=== PATIENT | female | born 1940 | race Caucasian/White ===

== ENCOUNTER → 2016-10-09 | Outpatient (CLI) | payer MEDICARE, BC ==
[~2016-10-09] MED LIST: CALCIUM + D 5001 TAB PO; GLUCOSAMINE & C1 CA1 PO; LEVOTHYROXIN0.075 MG PO; OCUVITE1 TA1 PO; ULTRAM50 MG PO; VITAMIN C500 MG PO; ZYRTEC 10MG10 MG PO
== END ==
LOC: LAB 07:38
DX: E03.4 Atrophy of thyroid (acquired) (principal); E78.2 Mixed hyperlipidemia

== ENCOUNTER → 2016-12-28 | Outpatient (CLI) | payer MEDICARE, BC ==
[2014-01-10 12:31] VITALS: BP 156/79
== END ==
LOC: LAB 07:43
DX: E03.9 Hypothyroidism, unspecified (principal)

== ENCOUNTER → 2017-01-03 | Outpatient (CLI) | payer MEDICARE, BC ==
[2014-01-10 12:31] VITALS: BP 156/79
== END ==
LOC: MAMMO 14:20
DX: Z12.31 Encounter for screening mammogram for malignant neoplasm of breast (principal)
CPT/HCPCS: G0202

== ENCOUNTER → 2017-03-09 | Outpatient (CLI) | payer MEDICARE, BC ==
[2014-01-10 12:31] VITALS: BP 156/79
== END ==
LOC: RAD 08:55
DX: Z13.820 Encounter for screening for osteoporosis (principal); M81.0 Age-related osteoporosis without current pathological fracture

== ENCOUNTER → 2017-04-20 | Outpatient (CLI) | payer MEDICARE, BC ==
[2014-01-10 12:31] VITALS: BP 156/79
== END ==
LOC: LAB 08:29
DX: E03.4 Atrophy of thyroid (acquired) (principal); F51.09 Other insomnia not due to a substance or known physiological condition

== ENCOUNTER 2017-09-05 08:16 | Emergency (ER) | payer MEDICARE, BC ==
[~2017-09-05] VITALS: Ht 160 cm; Wt 63.6 kg
[2017-09-05] MEDS ORDERED: ALENDRONATE SOD70 MG PO (08:37)
[2017-09-05] MEDS ORDERED: GOOD SENSE ASPI81 M1 PO (08:38)
[2017-09-05 09:11] LABS: HEMOGLOBIN 12.6 g/dL (12.5-16.0); MEAN CELL VOLUME 86 fl (78-100); MEAN CORPUSCULAR HEMOGLOBIN 27 pg (27-31); MEAN CORPUSCULAR HGB CONC 32 g/dL (33-37); MEAN PLATELET VOLUME 10.8 fl (7.4-10.4); PLATELET COUNT 244 K/mm3 (130-400); RED BLOOD COUNT 4.66 M/mm3 (4.10-5.30); RED CELL DISTRIBUTION WIDTH 14.5 % (11.5-14.5)
[2017-09-05 09:20] LABS: ALBUMIN 3.7 g/dL (3.5-5.0); POTASSIUM 3.9 mmol/L (3.6-5.0); TOTAL BILIRUBIN 0.6 mg/dL (0.2-1.3); TOTAL PROTEIN 6.9 g/dL (6.3-8.2)
[2017-09-05 09:22] LABS: LYMPHOCYTE 22 % (20-51); MONOCYTE 9 % (3-10); NEUTROPHILS 69 % (42-75)
[2017-09-05 09:27] LABS: D-DIMER 0.47 mg/L FEU (0.15-0.50)
[2017-09-05] MEDS ORDERED: MEDI-FIRST ASP325 MG PO (09:56)
[2017-09-05 10:47] LABS: URINE APPEARANCE CLEAR; URINE BILIRUBIN NEGATIVE (NEGATIVE); URINE BLOOD NEGATIVE (NEGATIVE); URINE COLOR YELLOW; URINE GLUCOSE NEGATIVE (NEGATIVE); URINE KETONE SMALL (NEGATIVE); URINE LEUKOCYTE ESTERASE NEGATIVE (NEGATIVE); URINE MUCUS PRESENT (NOT PRESENT); URINE NITRATE NEGATIVE (NEGATIVE); URINE PROTEIN(semi-quant) NEGATIVE (NEGATIVE); URINE UROBILINOGEN NORMAL (NORMAL)
[2017-09-05] MEDS ORDERED: LISINOPRIL10 MG PO (11:47)
[2017-09-05] MEDS ORDERED: DIFLUCAN150 M1 PO (11:47)
[2017-09-05 12:06] VITALS: BP 163/75
== END 2017-09-05 11:58 | disposition home or self-care (01) ==
LOC: ED 08:16
PROVIDERS: Physician Assistant
DX: I10 Essential (primary) hypertension (principal); R55 Syncope and collapse; S96.911A Strain of unspecified muscle and tendon at ankle and foot level, right foot, initial encounter; W19.XXXA Unspecified fall, initial encounter; Z88.2 Allergy status to sulfonamides; E03.9 Hypothyroidism, unspecified; Z79.82 Long term (current) use of aspirin; M81.0 Age-related osteoporosis without current pathological fracture; B37.49 Other urogenital candidiasis

== ENCOUNTER → 2017-10-24 | Outpatient (CLI) | payer MEDICARE, BC ==
[2017-09-13 11:29] VITALS: BP 160/80
[~2017-10-24] MED LIST changes: +ALENDRONATE SOD70 MG PO; +DIFLUCAN150 M1 PO; +GOOD SENSE ASPI81 M1 PO; +LISINOPRIL10 MG PO; +MEDI-FIRST ASP325 MG PO
== END ==
LOC: LAB 07:44
PROVIDERS: Family Medicine
DX: E03.4 Atrophy of thyroid (acquired) (principal); E78.2 Mixed hyperlipidemia; F51.09 Other insomnia not due to a substance or known physiological condition

== ENCOUNTER → 2017-12-28 | Outpatient (CLI) | payer MEDICARE, BC ==
[2017-09-13 11:29] VITALS: BP 160/80
== END ==
LOC: CARDREHAB 09:34 → CARDLAB 16:06
DX: R93.1 Abnormal findings on diagnostic imaging of heart and coronary circulation (principal); R07.89 Other chest pain; I10 Essential (primary) hypertension
CPT/HCPCS: A9500

== ENCOUNTER → 2018-01-16 | Outpatient (CLI) | payer MEDICARE, BC ==
[2017-09-13 11:29] VITALS: BP 160/80
== END ==
LOC: MAMMO 10:55
DX: Z12.31 Encounter for screening mammogram for malignant neoplasm of breast (principal)

== ENCOUNTER → 2018-11-27 | Outpatient (CLI) | payer MEDICARE, BC ==
[2017-09-13 11:29] VITALS: BP 160/80
[2018-11-27 08:37] LABS: ALBUMIN 3.9 g/dL (3.5-5.0); CALCIUM 10.1 mg/dL (8.4-10.2); POTASSIUM 3.9 mmol/L (3.6-5.0); TOTAL BILIRUBIN 0.5 mg/dL (0.2-1.3)
== END ==
LOC: LAB 07:32
PROVIDERS: Family Medicine
DX: E03.9 Hypothyroidism, unspecified (principal); I10 Essential (primary) hypertension

== ENCOUNTER → 2019-01-23 | Outpatient (CLI) | payer MEDICARE, BC ==
[2017-09-13 11:29] VITALS: BP 160/80
== END ==
LOC: MAMMO 08:09
DX: Z12.31 Encounter for screening mammogram for malignant neoplasm of breast (principal)

== ENCOUNTER 2019-07-13 10:44 | Emergency (ER) | payer MEDICARE, BC ==
[~2019-07-13] VITALS: Ht 160 cm; Wt 70.5 kg
[2019-07-13] MEDS ORDERED: LEVOTHYROXIN0.075 MG PO (10:58)
[2019-07-13] MEDS ORDERED: LISINOPRIL2.5 MG PO (10:59)
[2019-07-13 11:21] LABS: ALBUMIN 4.2 g/dL (3.4-4.8)
[2019-07-13 11:22] LABS: SODIUM 140 mmol/L (136-145)
[2019-07-13 11:23] LABS: CALCIUM 10.6 mg/dL (8.3-10.5)
[2019-07-13 11:24] LABS: GLUCOSE 94 mg/dL (65-105); TOTAL PROTEIN 7.2 g/dL (6.2-8.1)
[2019-07-13 11:25] LABS: CARBON DIOXIDE 24 mmol/L (23-31)
[2019-07-13 11:26] LABS: TOTAL BILIRUBIN 0.4 mg/dL (0.2-1.2)
[2019-07-13 11:27] LABS: EOS # 0.2 (0.04-0.40); EOS % 2.2 % (1.0-5.0); HEMOGLOBIN 12.9 g/dL (12.5-16.0); LYMPH# 3.2 (1.50-4.00); MEAN CELL VOLUME 83 fl (78-100); MEAN CORPUSCULAR HEMOGLOBIN 27 pg (27-31); MEAN CORPUSCULAR HGB CONC 32 g/dL (33-37); MEAN PLATELET VOLUME 11.4 fl (7.4-10.4); NEU # 4.5 (1.40-6.50); PARTIAL THROMBOPLASTIN TIME 26.1 SECONDS (21.0-32.0); PLATELET COUNT 239 K/mm3 (130-400); PROTHROMBIN TIME 10.1 SECONDS (9.0-12.0); RED BLOOD COUNT 4.84 M/mm3 (4.10-5.30); RED CELL DISTRIBUTION WIDTH 15.5 % (11.5-14.5); WHITE BLOOD COUNT 8.9 K/mm3 (4.8-10.8)
[2019-07-13 11:29] LABS: AST-SGOT 24 U/L (5-34)
[2019-07-13 11:31] LABS: ALT/SGPT 21 U/L (0-55)
[2019-07-13 11:39] LABS: TROPONIN-I < 0.03 ng/mL (<0.030)
[2019-07-13 12:23] VITALS: BP 185/99
== END 2019-07-13 12:43 | disposition short-term general hospital (02) ==
LOC: ED 10:44
PROVIDERS: Family Medicine
DX: I62.9 Nontraumatic intracranial hemorrhage, unspecified (principal); G81.94 Hemiplegia, unspecified affecting left nondominant side; E03.9 Hypothyroidism, unspecified; Z79.82 Long term (current) use of aspirin
CPT/HCPCS: J2997

== ENCOUNTER 2019-08-11 08:53 | Emergency (ER) | payer MEDICARE, BC ==
[~2019-08-11] VITALS: Ht 162.6 cm; Wt 65.5 kg
[~2019-08-11 08:53] MED LIST changes: +LISINOPRIL2.5 MG PO
[2019-08-11] MEDS ORDERED: GOOD SENSE ASPI81 M1 PO (09:08)
[2019-08-11] MEDS ORDERED: CLOPIDOGREL75 M2 PO (09:08)
[2019-08-11] MEDS ORDERED: ATROVENT NASAL15 ML NS (09:09)
[2019-08-11] MEDS ORDERED: FAMOTIDINE20 MG PO (09:10)
[2019-08-11] MEDS ORDERED: ATORVASTATIN CA20 MG PO (09:10)
[2019-08-11] MEDS ORDERED: ALENDRONATE SOD70 MG PO (09:10)
[2019-08-11 09:44] LABS: EOS # 0.1 (0.04-0.40); EOS % 1.2 % (1.0-5.0); HEMATOCRIT 38.2 % (37.0-47.0); HEMOGLOBIN 12.1 g/dL (12.5-16.0); LYMPH# 1.6 (1.50-4.00); MEAN CELL VOLUME 84 fl (78-100); MEAN CORPUSCULAR HEMOGLOBIN 27 pg (27-31); MEAN CORPUSCULAR HGB CONC 32 g/dL (33-37); MEAN PLATELET VOLUME 10.7 fl (7.4-10.4); MONO # 0.9 (0.20-0.80); PLATELET COUNT 252 K/mm3 (130-400); RED BLOOD COUNT 4.53 M/mm3 (4.10-5.30); RED CELL DISTRIBUTION WIDTH 15.9 % (11.5-14.5); WHITE BLOOD COUNT 7.6 K/mm3 (4.8-10.8)
[2019-08-11 09:56] LABS: ALBUMIN 3.8 g/dL (3.4-4.8)
[2019-08-11 09:57] LABS: POTASSIUM 4.6 mmol/L (3.5-5.1)
[2019-08-11 09:59] LABS: TOTAL PROTEIN 6.6 g/dL (6.2-8.1)
[2019-08-11 10:01] LABS: TOTAL BILIRUBIN 0.4 mg/dL (0.2-1.2)
[2019-08-11 10:28] LABS: URINE APPEARANCE CLEAR; URINE COLOR YELLOW
[2019-08-11 10:29] LABS: URINE BILIRUBIN NEGATIVE (NEGATIVE); URINE BLOOD NEGATIVE (NEGATIVE); URINE GLUCOSE NEGATIVE (NEGATIVE); URINE KETONE NEGATIVE (NEGATIVE); URINE LEUKOCYTE ESTERASE TRACE (NEGATIVE); URINE NITRATE NEGATIVE (NEGATIVE); URINE PROTEIN(semi-quant) TRACE mg/dL (NEGATIVE); URINE UROBILINOGEN NORMAL (NORMAL)
[2019-08-11 10:45] VITALS: BP 135/74
== END 2019-08-11 10:50 | disposition home or self-care (01) ==
LOC: ED 08:53
PROVIDERS: Physician Assistant
DX: F41.9 Anxiety disorder, unspecified (principal); R53.81 Other malaise; I10 Essential (primary) hypertension; Z79.02 Long term (current) use of antithrombotics/antiplatelets; Z79.82 Long term (current) use of aspirin; Z86.73 Personal history of transient ischemic attack (TIA), and cerebral infarction without residual deficits; Z90.49 Acquired absence of other specified parts of digestive tract; Z90.710 Acquired absence of both cervix and uterus; Z88.2 Allergy status to sulfonamides; Z88.6 Allergy status to analgesic agent

== ENCOUNTER 2019-10-23 08:26 | Emergency (ER) | payer MEDICARE, BC ==
[~2019-10-23] VITALS: Wt 70.2 kg
[~2019-10-23 08:26] MED LIST changes: +ATORVASTATIN CA20 MG PO; +ATROVENT NASAL15 ML NS; +CLOPIDOGREL75 M2 PO; +FAMOTIDINE20 MG PO
[2019-10-23 08:46] LABS: HEMATOCRIT 40.1 % (37.0-47.0); HEMOGLOBIN 12.6 g/dL (12.5-16.0); MEAN CELL VOLUME 86 fl (78-100); MEAN CORPUSCULAR HEMOGLOBIN 27 pg (27-31); MEAN CORPUSCULAR HGB CONC 31 g/dL (33-37); MEAN PLATELET VOLUME 10.6 fl (7.4-10.4); PLATELET COUNT 263 K/mm3 (130-400); RED BLOOD COUNT 4.65 M/mm3 (4.10-5.30); WHITE BLOOD COUNT 6.1 K/mm3 (4.8-10.8)
[2019-10-23 08:59] LABS: SODIUM 141 mmol/L (136-145)
[2019-10-23 09:00] LABS: CALCIUM 9.9 mg/dL (8.3-10.5)
[2019-10-23 09:01] LABS: GLUCOSE 88 mg/dL (65-105); TOTAL PROTEIN 6.6 g/dL (6.2-8.1)
[2019-10-23 09:02] LABS: CARBON DIOXIDE 26 mmol/L (23-31); LYMPHOCYTE 31 % (20-51); MONOCYTE 8 % (3-10); NEUTROPHILS 56 % (42-75)
[2019-10-23 09:03] LABS: OVALOCYTES 1+; PARTIAL THROMBOPLASTIN TIME 26.5 SECONDS (21.0-32.0); TOTAL BILIRUBIN 0.5 mg/dL (0.2-1.2)
[2019-10-23 09:06] LABS: AST-SGOT 27 U/L (5-34)
[2019-10-23 09:07] LABS: ALT/SGPT 27 U/L (0-55)
[2019-10-23 09:17] LABS: TROPONIN-I < 0.03 ng/mL (<0.030)
[2019-10-23 10:45] LABS: D-DIMER 0.31 mg/L FEU (0.15-0.50)
[2019-10-23 11:34] LABS: URINE APPEARANCE CLEAR; URINE BILIRUBIN NEGATIVE (NEGATIVE); URINE BLOOD NEGATIVE (NEGATIVE); URINE COLOR YELLOW; URINE GLUCOSE NEGATIVE (NEGATIVE); URINE KETONE SMALL (NEGATIVE); URINE LEUKOCYTE ESTERASE 2+ (NEGATIVE); URINE MUCUS PRESENT (NOT PRESENT); URINE NITRATE NEGATIVE (NEGATIVE); URINE PROTEIN(semi-quant) NEGATIVE (NEGATIVE); URINE UROBILINOGEN NORMAL (NORMAL)
[2019-10-23] MEDS ORDERED: MELATIN 3 MG-11 TAB PO (11:42)
[2019-10-23] MEDS ORDERED: CIPRO 500MG TA500 MG PO ×2 (13:28)
[2019-10-23] MEDS ORDERED: CIPRO500 M1 PO (13:45)
[2019-10-23 14:48] VITALS: BP 142/64
== END 2019-10-23 13:49 | disposition home or self-care (01) ==
LOC: ED 08:26
PROVIDERS: Nurse Practitioner Family
DX: F41.9 Anxiety disorder, unspecified (principal); N30.00 Acute cystitis without hematuria; I10 Essential (primary) hypertension; E03.9 Hypothyroidism, unspecified; Z79.02 Long term (current) use of antithrombotics/antiplatelets; Z79.82 Long term (current) use of aspirin; Z85.820 Personal history of malignant melanoma of skin; Z86.73 Personal history of transient ischemic attack (TIA), and cerebral infarction without residual deficits
CPT/HCPCS: J7030

== ENCOUNTER 2019-10-30 13:30 | Outpatient (RCR) | payer MEDICARE, BC ==
[~2019-10-30 13:30] MED LIST changes: +CIPRO 500MG TA500 MG PO; +CIPRO500 M1 PO; +MELATIN 3 MG-11 TAB PO
== END 2019-10-30 14:00 | disposition still patient (30) ==
LOC: PT 13:30
DX: M25.551 Pain in right hip (principal); I63.9 Cerebral infarction, unspecified

== ENCOUNTER → 2019-12-03 | Outpatient (CLI) | payer MEDICARE, BC ==
[2019-12-03 16:02] LABS: URINE APPEARANCE CLEAR; URINE BILIRUBIN NEGATIVE (NEGATIVE); URINE BLOOD NEGATIVE (NEGATIVE); URINE COLOR YELLOW; URINE GLUCOSE NEGATIVE (NEGATIVE); URINE KETONE NEGATIVE (NEGATIVE); URINE LEUKOCYTE ESTERASE NEGATIVE (NEGATIVE); URINE MUCUS PRESENT (NOT PRESENT); URINE NITRATE NEGATIVE (NEGATIVE); URINE PROTEIN(semi-quant) TRACE mg/dL (NEGATIVE); URINE UROBILINOGEN NORMAL (NORMAL)
== END ==
LOC: LAB 15:51
PROVIDERS: Family Medicine
DX: R32 Unspecified urinary incontinence (principal); R35.1 Nocturia

== ENCOUNTER → 2020-02-16 | Outpatient (CLI) | payer MEDICARE, BC ==
[2020-02-16 10:46] LABS: ALBUMIN 4.3 g/dL (3.4-4.8); POTASSIUM 4.1 mmol/L (3.5-5.1)
[2020-02-16 10:47] LABS: CALCIUM 9.8 mg/dL (8.3-10.5)
[2020-02-16 10:49] LABS: TOTAL PROTEIN 7.1 g/dL (6.2-8.1)
[2020-02-16 10:51] LABS: TOTAL BILIRUBIN 0.4 mg/dL (0.2-1.2)
[2020-02-16 11:05] LABS: URINE APPEARANCE HAZY; URINE BILIRUBIN NEGATIVE (NEGATIVE); URINE BLOOD NEGATIVE (NEGATIVE); URINE COLOR YELLOW; URINE GLUCOSE NEGATIVE (NEGATIVE); URINE KETONE NEGATIVE (NEGATIVE); URINE NITRATE NEGATIVE (NEGATIVE); URINE PROTEIN(semi-quant) NEGATIVE (NEGATIVE); URINE UROBILINOGEN NORMAL (NORMAL)
[2020-02-16 11:06] LABS: URINE LEUKOCYTE ESTERASE 1+ (NEGATIVE)
== END ==
LOC: LAB 10:15
PROVIDERS: Family Medicine
DX: I10 Essential (primary) hypertension (principal); E78.00 Pure hypercholesterolemia, unspecified; E03.9 Hypothyroidism, unspecified; R32 Unspecified urinary incontinence; R35.1 Nocturia

== ENCOUNTER → 2020-02-17 | Outpatient (CLI) | payer MEDICARE, BC | LOC: LAB 09:23 | DX: N39.0 Urinary tract infection, site not specified (principal) ==

== ENCOUNTER 2020-03-03 09:15 | Outpatient (RCR) | payer MEDICARE, BC | END 2020-03-19 14:10 | LOC: OPPGERO 09:15 | DX: F43.23 Adjustment disorder with mixed anxiety and depressed mood (principal); I63.9 Cerebral infarction, unspecified; M81.8 Other osteoporosis without current pathological fracture; F41.9 Anxiety disorder, unspecified; E03.9 Hypothyroidism, unspecified; I35.1 Nonrheumatic aortic (valve) insufficiency; I10 Essential (primary) hypertension; K58.9 Irritable bowel syndrome, unspecified; T74.11XA Adult physical abuse, confirmed, initial encounter; Z72.89 Other problems related to lifestyle; Z79.899 Other long term (current) drug therapy; Z90.710 Acquired absence of both cervix and uterus; Z90.49 Acquired absence of other specified parts of digestive tract; Z90.89 Acquired absence of other organs; Z85.828 Personal history of other malignant neoplasm of skin ==

== ENCOUNTER → 2020-03-17 | Outpatient (CLI) | payer MEDICARE, BC ==
[2020-03-17 07:25] LABS: ALBUMIN 3.9 g/dL (3.4-4.8); POTASSIUM 4.2 mmol/L (3.5-5.1)
[2020-03-17 07:26] LABS: CALCIUM 9.4 mg/dL (8.3-10.5)
[2020-03-17 07:27] LABS: TOTAL PROTEIN 6.9 g/dL (6.2-8.1)
[2020-03-17 07:29] LABS: TOTAL BILIRUBIN 0.6 mg/dL (0.2-1.2)
== END ==
LOC: LAB 07:05
PROVIDERS: Family Medicine
DX: E78.00 Pure hypercholesterolemia, unspecified (principal); E03.4 Atrophy of thyroid (acquired); I10 Essential (primary) hypertension

== ENCOUNTER 2020-03-22 08:25 | Outpatient (RCR) | payer MEDICARE, BC | END 2020-04-19 16:11 | disposition home or self-care (01) | LOC: OPPGERO 08:25 | DX: F43.23 Adjustment disorder with mixed anxiety and depressed mood (principal); I10 Essential (primary) hypertension; Z86.73 Personal history of transient ischemic attack (TIA), and cerebral infarction without residual deficits; Z90.49 Acquired absence of other specified parts of digestive tract; Z90.89 Acquired absence of other organs; Z90.710 Acquired absence of both cervix and uterus; Z95.818 Presence of other cardiac implants and grafts; Z79.02 Long term (current) use of antithrombotics/antiplatelets; Z79.899 Other long term (current) drug therapy; Z87.891 Personal history of nicotine dependence ==

== ENCOUNTER → 2020-04-08 | Outpatient (CLI) | payer MEDICARE, BC | LOC: LAB 12:01 | DX: N39.0 Urinary tract infection, site not specified (principal) ==

== ENCOUNTER 2020-04-20 09:11 | Outpatient (RCR) | payer MEDICARE, BC | END 2020-05-19 17:02 | disposition still patient (30) | LOC: OPPGERO 09:11 | DX: F43.23 Adjustment disorder with mixed anxiety and depressed mood (principal); I10 Essential (primary) hypertension; E03.9 Hypothyroidism, unspecified; T74.31XA Adult psychological abuse, confirmed, initial encounter; M81.8 Other osteoporosis without current pathological fracture; Z63.4 Disappearance and death of family member; Z86.73 Personal history of transient ischemic attack (TIA), and cerebral infarction without residual deficits; Z79.899 Other long term (current) drug therapy; Z85.820 Personal history of malignant melanoma of skin; Z90.49 Acquired absence of other specified parts of digestive tract; Z90.710 Acquired absence of both cervix and uterus; Z90.89 Acquired absence of other organs; Z95.818 Presence of other cardiac implants and grafts ==

== ENCOUNTER 2020-05-20 14:16 | Outpatient (RCR) | payer MEDICARE, BC | END 2020-06-18 14:27 | LOC: OPPGERO 14:16 | DX: F43.23 Adjustment disorder with mixed anxiety and depressed mood (principal); I63.9 Cerebral infarction, unspecified; M81.0 Age-related osteoporosis without current pathological fracture; E03.9 Hypothyroidism, unspecified; I10 Essential (primary) hypertension; T74.11XA Adult physical abuse, confirmed, initial encounter; F10.99 Alcohol use, unspecified with unspecified alcohol-induced disorder; N82.3 Fistula of vagina to large intestine; K58.9 Irritable bowel syndrome, unspecified; Z79.899 Other long term (current) drug therapy; Z85.820 Personal history of malignant melanoma of skin; Z90.49 Acquired absence of other specified parts of digestive tract; Z90.89 Acquired absence of other organs ==

== ENCOUNTER → 2020-06-03 | Outpatient (CLI) | payer MEDICARE, BC ==
[2020-06-03 12:46] LABS: URINE APPEARANCE CLEAR; URINE BILIRUBIN NEGATIVE (NEGATIVE); URINE BLOOD NEGATIVE (NEGATIVE); URINE COLOR YELLOW; URINE GLUCOSE NEGATIVE (NEGATIVE); URINE KETONE NEGATIVE (NEGATIVE); URINE LEUKOCYTE ESTERASE TRACE (NEGATIVE); URINE NITRATE NEGATIVE (NEGATIVE); URINE PROTEIN(semi-quant) 1+ mg/dL (NEGATIVE); URINE UROBILINOGEN NORMAL (NORMAL); URINE WBC 0-1 /hpf (0-3)
[2020-06-03 12:47] LABS: URINE MUCUS PRESENT (NOT PRESENT)
== END ==
LOC: LAB 12:23
PROVIDERS: Family Medicine
DX: I10 Essential (primary) hypertension (principal); R35.0 Frequency of micturition

== ENCOUNTER → 2021-01-31 | Outpatient (CLI) | payer MEDICARE, BC ==
[2021-01-31 16:39] LABS: BASO # 0.02 (0.02-0.10); EOS # 0.15 (0.04-0.40); HEMATOCRIT 37.5 % (37.0-47.0); HEMOGLOBIN 11.9 g/dL (12.5-16.0); LYMPH# 2.22 (1.50-4.00); MEAN CELL VOLUME 85 fl (78-100); MEAN CORPUSCULAR HEMOGLOBIN 27 pg (27-31); MEAN CORPUSCULAR HGB CONC 32 g/dL (33-37); MEAN PLATELET VOLUME 10.2 fl (7.4-10.4); MONO # 0.82 (0.20-0.80); NEU # 4.13 (1.40-6.50); PLATELET COUNT 291 K/mm3 (130-400); WHITE BLOOD COUNT 7.4 K/mm3 (4.8-10.8)
[2021-01-31 16:44] LABS: ALBUMIN 3.8 g/dL (3.4-4.8)
[2021-01-31 16:45] LABS: POTASSIUM 3.8 mmol/L (3.5-5.1)
[2021-01-31 16:46] LABS: CALCIUM 9.3 mg/dL (8.3-10.5)
[2021-01-31 16:47] LABS: TOTAL PROTEIN 6.8 g/dL (6.2-8.1)
[2021-01-31 16:49] LABS: TOTAL BILIRUBIN 0.2 mg/dL (0.2-1.2)
== END ==
LOC: LAB 16:16
PROVIDERS: Psychiatry & Neurology Vascular Neurology
DX: R53.83 Other fatigue (principal)

== ENCOUNTER 2021-02-11 10:09 | Outpatient (RCR) | payer MEDICARE, BC | END 2021-05-12 | disposition home or self-care (01) | LOC: PT | DX: R26.89 Other abnormalities of gait and mobility (principal) ==

== ENCOUNTER → 2021-02-24 | Outpatient (CLI) | payer MEDICARE, BC | LOC: RAD 09:39 | DX: M17.11 Unilateral primary osteoarthritis, right knee (principal) ==

== ENCOUNTER → 2021-03-28 | Outpatient (CLI) | payer MEDICARE, BC | LOC: LAB 07:11 | DX: E78.5 Hyperlipidemia, unspecified (principal) ==

== ENCOUNTER → 2021-04-20 | Outpatient (CLI) | payer MEDICARE, BC | LOC: RAD 10:22 → MAMMO 10:45 | DX: Z13.820 Encounter for screening for osteoporosis (principal); M85.80 Other specified disorders of bone density and structure, unspecified site; M81.8 Other osteoporosis without current pathological fracture ==

== ENCOUNTER → 2021-05-05 | Outpatient (CLI) | payer MEDICARE, BC | LOC: MAMMO 12:15 | DX: N63.20 Unspecified lump in the left breast, unspecified quadrant (principal); Z95.818 Presence of other cardiac implants and grafts ==

== ENCOUNTER → 2021-08-22 | Outpatient (CLI) | payer MEDICARE, BC ==
[~2021-08-22] MED LIST changes: +LEVOTHYROXIN0.088 MG PO; +ZESTRIL5 M1 PO
== END ==
LOC: LAB 15:43
DX: Z20.822 Contact with and (suspected) exposure to COVID-19 (principal)

== ENCOUNTER → 2022-04-04 | Outpatient (CLI) | payer MEDICARE, BC ==
[~2022-04-04] MED LIST changes: -LEVOTHYROXIN0.088 MG PO; -ZESTRIL5 M1 PO
[2022-04-04 08:13] LABS: POTASSIUM 4.3 mmol/L (3.5-5.1)
[2022-04-04 08:14] LABS: ALBUMIN 3.8 g/dL (3.4-4.8)
[2022-04-04 08:15] LABS: CALCIUM 9.9 mg/dL (8.3-10.5)
[2022-04-04 08:16] LABS: TOTAL PROTEIN 6.4 g/dL (6.2-8.1)
[2022-04-04 08:18] LABS: TOTAL BILIRUBIN 0.6 mg/dL (0.2-1.2)
== END ==
LOC: LAB 07:38
PROVIDERS: Family Medicine
DX: I63.9 Cerebral infarction, unspecified (principal); E78.00 Pure hypercholesterolemia, unspecified; E03.4 Atrophy of thyroid (acquired); I10 Essential (primary) hypertension

== ENCOUNTER → 2022-07-04 | Outpatient (CLI) | payer MEDICARE, BC | LOC: LAB 08:18 | DX: Z00.00 Encounter for general adult medical examination without abnormal findings (principal); E03.4 Atrophy of thyroid (acquired); I10 Essential (primary) hypertension; I63.9 Cerebral infarction, unspecified; M81.8 Other osteoporosis without current pathological fracture; E78.00 Pure hypercholesterolemia, unspecified; M25.561 Pain in right knee ==

== ENCOUNTER → 2023-04-27 | Outpatient (CLI) | payer MEDICARE, BC ==
[~2023-04-27] MED LIST changes: +CALCIUM500 M1; +CEFADROXIL500 MG PO; +LEVOTHYROXIN0.088 MG PO; +MIRALAX17 GM PO; +NEXIUM 40MG40 MG PO; +PROAIR DIGIHAL90 MCG IH; +ROXICODONE 55 MG/TAB PO; +THE MEDICINE S500 M1 PO; +TYLENOL EXTRA500 M2 PO; +VITAMIN C PUR1000 MG PO; +ZESTRIL5 M1 PO; +ZOFRAN ODT4 MG PO; +albuterol sulfate; +vitamin d PO
[2023-04-27 07:59] LABS: ALBUMIN 4.1 g/dL (3.4-4.8); POTASSIUM 4.2 mmol/L (3.5-5.1)
[2023-04-27 08:00] LABS: CALCIUM 9.9 mg/dL (8.3-10.5)
[2023-04-27 08:01] LABS: TOTAL PROTEIN 6.9 g/dL (6.2-8.1)
[2023-04-27 08:03] LABS: TOTAL BILIRUBIN 0.5 mg/dL (0.2-1.2)
== END ==
LOC: LAB 07:28
PROVIDERS: Family Medicine
DX: Z00.00 Encounter for general adult medical examination without abnormal findings (principal); Z12.31 Encounter for screening mammogram for malignant neoplasm of breast; Z13.820 Encounter for screening for osteoporosis; E78.00 Pure hypercholesterolemia, unspecified; Z71.89 Other specified counseling; I10 Essential (primary) hypertension; I69.359 Hemiplegia and hemiparesis following cerebral infarction affecting unspecified side

== ENCOUNTER → 2023-05-22 | Outpatient (CLI) | payer MEDICARE, BC | LOC: RAD 08:19 | DX: S42.201D Unspecified fracture of upper end of right humerus, subsequent encounter for fracture with routine healing (principal); X58.XXXD Exposure to other specified factors, subsequent encounter; M25.511 Pain in right shoulder ==

== ENCOUNTER 2023-06-19 09:24 | Emergency (ER) | payer MEDICARE, BC ==
[~2023-06-19] VITALS: Ht 162.6 cm; Wt 71.8 kg
[2023-06-19 10:40] LABS: URINE APPEARANCE CLEAR; URINE BILIRUBIN NEGATIVE (NEGATIVE); URINE BLOOD TRACE (NEGATIVE); URINE COLOR YELLOW; URINE GLUCOSE NEGATIVE (NEGATIVE); URINE KETONE NEGATIVE (NEGATIVE); URINE LEUKOCYTE ESTERASE 1+ (NEGATIVE); URINE NITRATE NEGATIVE (NEGATIVE); URINE PROTEIN(semi-quant) TRACE (NEGATIVE); URINE UROBILINOGEN NORMAL (NORMAL)
[2023-06-19 10:41] LABS: URINE MUCUS PRESENT (NOT PRESENT)
[2023-06-19 11:22] VITALS: BP 154/80
== END 2023-06-19 11:25 | disposition home or self-care (01) ==
LOC: ED 09:24
PROVIDERS: Nurse Practitioner Family
DX: Z71.1 Person with feared health complaint in whom no diagnosis is made (principal)

== ENCOUNTER → 2023-07-03 | Outpatient (CLI) | payer MEDICARE, BC | LOC: RAD 07:59 | DX: M25.561 Pain in right knee (principal) ==

== ENCOUNTER → 2023-07-20 | Outpatient (CLI) | payer MEDICARE, BC ==
[2023-07-20 10:12] LABS: CALCIUM 9.6 mg/dL (8.3-10.5)
[2023-07-20 21:25] LABS: CREATININE OTHER SOURCE 41 mg/dL (63-166)
== END ==
LOC: LAB 08:21 → RAD 08:21 → MAMMO 08:30
PROVIDERS: Family Medicine
DX: M81.0 Age-related osteoporosis without current pathological fracture (principal); M17.12 Unilateral primary osteoarthritis, left knee; M11.262 Other chondrocalcinosis, left knee; M17.11 Unilateral primary osteoarthritis, right knee; M11.261 Other chondrocalcinosis, right knee; E03.4 Atrophy of thyroid (acquired); I10 Essential (primary) hypertension

== ENCOUNTER → 2023-08-03 | Outpatient (CLI) | payer MEDICARE, BC ==
[~2023-08-03] VITALS: Ht 162.6 cm; Wt 71.8 kg
[2023-08-03 11:30] VITALS: BP 145/84
== END ==
LOC: AMSURD 10:27
DX: M81.8 Other osteoporosis without current pathological fracture (principal)
CPT/HCPCS: J0897

== ENCOUNTER → 2024-01-21 | Outpatient (CLI) | payer MEDICARE, BC ==
[~2024-01-21] MED LIST changes: +CEFDINIR300 MG PO; +ESOMEPRAZOLE MA40 M1 PO
[2024-03-10 05:33] LABS: CALCIUM 9.7 mg/dL (8.3-10.5)
== END ==
LOC: LAB 11:21
PROVIDERS: Family Medicine
DX: I10 Essential (primary) hypertension (principal); E03.4 Atrophy of thyroid (acquired)

== ENCOUNTER → 2024-04-24 | Outpatient (CLI) | payer MEDICARE, BC ==
[2024-04-24 07:38] LABS: CALCIUM 9.9 mg/dL (8.3-10.5)
== END ==
LOC: LAB 07:07
PROVIDERS: Family Medicine
DX: I10 Essential (primary) hypertension (principal); E03.4 Atrophy of thyroid (acquired); E78.2 Mixed hyperlipidemia

== ENCOUNTER → 2024-05-06 | Outpatient (CLI) | payer MEDICARE, BC ==
[~2024-05-06] VITALS: Ht 162.6 cm; Wt 75.5 kg
[~2024-05-06] MED LIST changes: +Denosumab 60 MG/ML SYRINGE SQ ONE; +VITAMIN E PO
[2024-05-06 09:10] VITALS: BP 139/74
--- NOTE | 2024-05-06 09:20 | NUR ---
GAVE PROLIA 60MG SC IN LEFT UPPER ARM.
== END ==
LOC: AMSURD 08:54
DX: M81.0 Age-related osteoporosis without current pathological fracture (principal)
CPT/HCPCS: J0897

== ENCOUNTER → 2024-11-12 | Outpatient (CLI) | payer MEDICARE, BC ==
[~2024-11-12] MED LIST changes: -Denosumab 60 MG/ML SYRINGE SQ ONE
[2024-11-12 09:02] LABS: URINE WBC 0 /hpf (0-3)
[2024-11-12 09:32] LABS: ALBUMIN 4.2 g/dL (3.4-4.8)
[2024-11-12 09:33] LABS: CALCIUM 10.1 mg/dL (8.3-10.5)
[2024-11-12 09:34] LABS: TOTAL PROTEIN 7.6 g/dL (6.2-8.1)
[2024-11-12 09:36] LABS: TOTAL BILIRUBIN 0.4 mg/dL (0.2-1.2)
[2024-11-12 09:38] LABS: BASO # 0.01 K/mm3 (0.02-0.10); EOS # 0.23 K/mm3 (0.04-0.40); EOS % 3.1 % (1.0-5.0); HEMATOCRIT 40.5 % (37.0-47.0); HEMOGLOBIN 12.7 g/dL (12.5-16.0); LYMPH# 2.09 K/mm3 (1.50-4.00); MEAN CELL VOLUME 87 fl (78-100); MEAN CORPUSCULAR HEMOGLOBIN 27 pg (27-31); MEAN CORPUSCULAR HGB CONC 31 g/dL (33-37); MEAN PLATELET VOLUME 10.9 fl (7.4-10.4); MONO # 0.96 K/mm3 (0.20-0.80); NEU # 4.17 K/mm3 (1.40-6.50); PLATELET COUNT 287 K/mm3 (130-400); RED BLOOD COUNT 4.65 M/mm3 (4.10-5.30); RED CELL DISTRIBUTION WIDTH 15.4 % (11.5-14.5); WHITE BLOOD COUNT 7.5 K/mm3 (4.8-10.8)
[2024-11-12 09:45] LABS: URINE APPEARANCE CLEAR (CLEAR); URINE BILIRUBIN NEGATIVE (NEGATIVE); URINE BLOOD NEGATIVE (NEGATIVE); URINE COLOR YELLOW (YELLOW); URINE GLUCOSE NEGATIVE (NEGATIVE); URINE KETONE NEGATIVE (NEGATIVE); URINE LEUKOCYTE ESTERASE NEGATIVE (NEGATIVE); URINE NITRATE NEGATIVE (NEGATIVE); URINE PROTEIN(semi-quant) NEGATIVE (NEGATIVE)
== END ==
LOC: LAB 08:53
PROVIDERS: Family Medicine
DX: Z01.818 Encounter for other preprocedural examination (principal)